=== PATIENT | female | born 1940 | race Caucasian/White ===

== ENCOUNTER → 2019-07-09 | Outpatient (CLI) | payer MEDICARE ==
[~2019-07-09] MED LIST: ALLEGRA ALLERGY60 MG PO; BUTALBITAL ACET1 CAP PO; CENTRUM SILVER1 CTB PO; CRESTOR20 MG PO; FLONASE NASAL S16 GM NS; FOSAMAX 70MG TA70 MG PO; HCTZ 25MG TAB25 MG PO; NORCO 325 MG-51 TAB PO; PAXIL 10MG10 MG PO; TENORMIN 5050 MG/TAB PO; XANAX 0.5MG0.5 MG PO
== END ==
LOC: MC.RAD 07:04
DX: N63.10 Unspecified lump in the right breast, unspecified quadrant (principal); Z98.82 Breast implant status

== ENCOUNTER 2019-07-22 06:36 | Day surgery (SDC) | payer MEDICARE ==
[~2019-07-22] VITALS: Ht 165.1 cm; Wt 63.7 kg
[2019-07-22] VITALS (11 sets, daily range): BP systolic 128–168; BP diastolic 54–87; PULSE 65–90; TEMP 98–98.1
[2019-07-22] MEDS ORDERED: CENTRUM SILVER1 CTB PO (09:31)
[2019-07-22] MEDS ORDERED: ALLEGRA ALLERGY60 MG PO (09:32)
[2019-07-22] MEDS ORDERED: BUTALBITAL ACET1 CAP PO (09:33)
[2019-07-22] MEDS ORDERED: HCTZ 25MG TAB25 MG PO (09:34)
[2019-07-22] MEDS ORDERED: PAXIL 10MG10 MG PO (09:35)
[2019-07-22] MEDS ORDERED: CRESTOR20 MG PO (09:36)
[2019-07-22] MEDS ORDERED: TENORMIN 5050 MG/TAB PO (09:43)
[2019-07-22] MEDS ORDERED: XANAX 0.5MG0.5 MG PO (09:44)
[2019-07-22] MEDS ORDERED: FOSAMAX 70MG TA70 MG PO (09:44)
[2019-07-22] MEDS ORDERED: FLONASE NASAL S16 GM NS (09:45)
--- NOTE | 2019-07-22 10:17 | NUR ---
Patient taken to radiology per cart accompanied by radiology staff.
--- NOTE | 2019-07-22 11:12 | NUR ---
Patient returns to room from radiology and assisted up to the bathroom and returns to room. Siderails up x2 and taken to PACU for block placement.
--- NOTE | 2019-07-22 15:15 | NUR ---
Patient alert and oriented, answers questions appropriately. See assessment. Right breast incision with dressing CDI. Bucky drain present to right breast, compressed, scant amount serosanginous drainage noted. No c/o at this time.
--- NOTE | 2019-07-22 20:15 | NUR ---
Pt. sitting up at bedside. Pt. is A&OX3, assessment complete. INT to lt. hand patent. Dressing to rt. breast CDI. ESTEVAN drain patent, serosang. draingage noted. Pt. reports mild pain at a 4 to rt. chest. Pt. would given pain meds per orders at this time per pt. request. Pt. denies further needs, call light within reach.
[2019-07-23 04:49] VITALS: BP 141/69; PULSE 86; TEMP 98.2
--- NOTE | 2019-07-23 07:02 | NUR ---
Received report from shift superintendent nurseBruce.
[2019-07-23 07:42] VITALS: BP 143/77; PULSE 80; TEMP 98.3
[2019-07-23] MEDS ORDERED: NORCO 325 MG-51 TAB PO (08:55)
--- NOTE | 2019-07-23 09:23 | NUR ---
Patient reports was seen by the doctor, up independently in the room, with no complaints, reports that she will be taken home by private car with male acquaintance around 1400. HV drain in place to right chect with red draininage.
--- NOTE | 2019-07-23 09:34 | NUR ---
Patient up walking in halls independently with no complaints reported, care management staff presently seeing patient. Bed in low position, call light within patient's reach when in bed.
--- NOTE | 2019-07-23 10:14 | NUR ---
Embalmer/Funeral Director met with the patient to complete initial intake and discuss discharge planning. Patient lives alone in [place], although she has a friend, Miri (ph#[phone]) that checks on her often and helps her with household tasks. Patient sees Dr. Tyson for primary care [facility] [place] [facility]. Patient reports independence with ADLS. Patient reports Advance Directives have been set up through Rick Irby, [employer] in [place]. Patient states her son, Geovanny is her DPOA-HC. Patient has no concerns about returning home upon discharge. Patient's friend, Nahun (ph#[phone]) will be pickup up the patient upon discharge to provide patient transportation home.
--- NOTE | 2019-07-23 10:28 | NUR ---
REMOVE INT SITE TO LEFT HAND WITH OUT PROBLEMS, PATIENT TOLERATED WELL.
--- NOTE | 2019-07-23 10:45 | NUR ---
Initial visit; Patient thanked Music Specialist for looking in on her and offering encouragement and God's blessings. Patient has wonderful out look.
--- NOTE | 2019-07-23 10:53 | NUR ---
REVIEWED HOME CARE FOR ESTEVAN DRAIN, WITH PATIENT VERBALIZING UNDERSTANDING OF EMPTYING OUT DRAIN AND MONITORING OUTPUT ON HOME CARE SHEET, INSTRUCTING PATIENT TO TAKE SHEET TO HER FOLLOW UP POST OP APPT.
[2019-07-23 11:27] VITALS: BP 160/64; PULSE 62; TEMP 97.8
--- NOTE | 2019-07-23 12:40 | NUR ---
Patient performed successful return demonstration in emptying out ESTEVAN drain. Patient with no further questions or concerns regarding ESTEVAN drain home care. Patient reviewed printed home care instructions of ESTEVAN drain with no further questions or concerns.
--- NOTE | 2019-07-23 13:36 | NUR ---
Discharge instruction reviewed with patient, personal belongings gathered by patient, has glasses and clothing packed. Reviewed educational informations regarding medication safety, drug information on hydrocodone, ESTEVAN home care, post op mastectomy care, when to call doctor, follow up appointments, rx for hydrocodone printed&signed by Dr Taylor with no additional questions or concerns. Patient contacted her friend who is to transport her home, that her dismissal instructions are done. Waiting on patient's transportation.
--- NOTE | 2019-07-23 14:21 | NUR ---
DISCHARGE VIA WHEEL CHAIR TO AUTO HOME WITH FRIEND AT 1400.
== END 2019-07-23 14:00 | disposition home or self-care (01) ==
LOC: SDCO 06:36 → SURG 06:36 → SDCO 12:00 → SURG 14:30 → SDCO 07-23 14:00
DX: C50.111 Malignant neoplasm of central portion of right female breast (principal); Z17.0 Estrogen receptor positive status [ER+]; Z80.3 Family history of malignant neoplasm of breast; I10 Essential (primary) hypertension
CPT/HCPCS: OP; A9541; J0690; J1100; J1885; J2250; J2405; J2704; J3010; J7120